=== PATIENT | male | born 1935 | race Caucasian/White ===

== ENCOUNTER 2018-10-20 09:57 | Emergency (ER) | payer MEDICARE, BC ==
--- NOTE | 2018-10-20 10:25 | Emergency Department Record ---
History of Present Illness - General Chief Complaint: Chest Pain Stated Complaint: CHEST PAIN Time Seen by Provider: 10/20/18 10:08 Source: Patient, Family Mode of Arrival: Ambulatory Limitations: No limitations - History of Present Illness Initial Comments: The patient is here due to L sided CP over the last hour. The patient states the pain was an aching pain that waxed and waned and was associated with lightheadedness. He denied any SOB, TONY, or sweating with it. The patient presently is gone. The patient did take 3 full dose ASA's after the onset of the pain. Additionally he had mild pain last evening with it. The onset this AM was at [facility]. Complaint: Chest pain Onset/Timin -: Hour(s) Pain Location: Left chest Pain Radiation: None Treatments Prior to Arrival: Aspirin - Related Data Home Medications Medication Instructions Recorded Confirmed Last Taken Tamsulosin HCl [Flomax] 0.4 mg PO DAILY 10/20/18 10/20/18 10/20/18 Allergies Allergy/AdvReac Type Severity Reaction Status Date / Time No Known Allergies Allergy none Verified 10/20/18 10:13 Travel Screening - Travel/Exposure Within Last 30 Days Have you traveled within the last 30 days?: No - Travel/Exposure Within Last Year Have you traveled outside the [place] in the last year?: No - Additonal Travel Details Have you been exposed to anyone with a communicable illness?: No - Travel Symptoms Symptom Screening: None Review of Systems Constitutional: Denies: Chills, Fever Eyes: Denies: Eye discharge ENT: Denies: Congestion Respiratory: Denies: Cough, Dyspnea Cardiovascular: Reports: Chest pain. Denies: Arrhythmia Endocrine: Denies: Fatigue Gastrointestinal: Denies: Nausea Genitourinary: Denies: Dysuria Musculoskeletal: Denies: Arthralgia Skin: Denies: Bruising Past Medical History - SOCIAL HISTORY Smoking Status: Never smoker Alcohol Use: None Drug Use: None - RESPIRATORY Hx Respiratory Disorders: No - CARDIOVASCULAR Hx Cardio Disorders: No Comment:: murmur - NEURO Hx Neuro Disorders: No - GI Hx GI Disorders: No Hx Hiatal Hernia: Yes - Hx Genitourinary Disorders: Yes Hx Prostate Problems: Yes - ENDOCRINE Hx Endocrine Disorders: No - MUSCULOSKELETAL Hx Musculoskeletal Disorders: No - PSYCH Hx Psych Problems: No - HEMATOLOGY/ONCOLOGY Hx Hematology/Oncology Disorders: Yes Hx Cancer: Yes (prostate) Family Medical History Any Significant Family History?: No Physical Exam - General General Appearance: Alert, Oriented x3, Cooperative, No acute distress - Head Head exam: Atraumatic, Normocephalic, Normal inspection - Eye Eye exam: Normal appearance, PERRL, EOMI - ENT Throat exam: Normal inspection. negative: Tonsillar erythema, Tonsillar exudate - Neck Neck exam: Normal inspection, Full ROM. negative: Tenderness - Respiratory Respiratory exam: Normal lung sounds bilaterally. negative: Respiratory distress - Cardiovascular Cardiovascular Exam: Regular rate, Normal rhythm, Systolic murmur - GI/Abdominal GI/Abdominal exam: Soft, Normal bowel sounds. negative: Tenderness - Extremities Extremities exam: Normal inspection, Full ROM, Normal capillary refill. negative: Tenderness - Back Back exam: Reports: Normal inspection - Neurological Neurological exam: Alert, Normal gait. negative: Abnormal gait, Motor sensory deficit - Psychiatric Psychiatric exam: negative: Anxious Course Vital Signs 10/20/18 09:58 Temperature 97.8 F Pulse Rate 92 H Respiratory 16 Rate Blood Pressure 148/92 Pulse Ox 98 - Reevaluation(s) Reevaluation #1: The patient has had some intermittent chest pains off and on since he has been here. Presently he is pain free. 2nd EKG: NSR at 86, neg ST-T changes. 10/20/18 11:26 Reevaluation #2: I did discuss the need for further monitoring and testing but due to being the weekend here we have no capability for that. The patient states he would like to see the [facility] group so we will initiate transfer to [facility]. 10/20/18 11:27 Reevaluation #3: I did discuss the case with Dr. Urbano at [facility] and she does accept the patient in transfer. 10/20/18 11:41 Medical Decision Making - Data Complexity MDM Data: Labs Ordered and/or Reviewed, X-Ray Ordered and/or Reviewed, EKG Ordered and/or Reviewed - Lab Data Result diagrams: 10/20/18 10:02 10/20/18 10:02 - EKG Data -: EKG Interpreted by Me EKG: No Acute Changes, Normal EKG - Radiology Data Radiology results: Report reviewed (CXR: neg for acute changes.) Disposition Disposition: Transfer Clinical Impression: Chest pain at rest Disposition: Acute Care Hospital Transfer Transfer To: [facility] Reason For Transfer: Cardiology Accepting Physician: Sundeep. Time Discussed w/Accepting Physician: 11:42 Condition: (2) Stable Forms: Patient Portal Access Time of Disposition: 11:42 Quality - Quality Measures Quality Measures: N/A - Blood Pressure Screening View Details: Yes Does Patient Have Any of the Following: No Blood Pressure Classification: Hypertensive Reading Systolic Measurement: 148 Diastolic Measurement: 92 Screening for High Blood Pressure: < First Hypertensive BP, F/U Documented > [ [id number]] First Hypertensive Follow-up Interventions: Referral to alternative/primary care provider.
[2018-10-20 10:40] LABS: BASO % 0.5 % (0-6); EOS % 1.9 % (0-6); GRAN % 64.5 % (47-80); HEMATOCRIT 45.8 % (42.0-52.0); HEMOGLOBIN 14.6 gm/dl (14.0-18.0); LYMPH % 24.9 % (16-45); MEAN CORPUSCULAR HEMOGLOBIN 30.9 pg (27-33); MEAN CORPUSCULAR HGB CONC 31.9 g/dl (32-36); MEAN PLATELET VOLUME 9.3 fl (7.4-10.4); MONO % 8.2 % (0-9); PLATELET COUNT 177 K/uL (130-400); RED BLOOD COUNT 4.72 M/uL (4.40-5.70); RED CELL DISTRIBUTION WIDTH 13.6 % (11.5-14.5); WHITE BLOOD COUNT W/O DIFF 4.3 K/uL (4.2-12.2)
[2018-10-20 10:51] LABS: PARTIAL THROMBOPLASTIN TIME 26.5 SECONDS (24.5-39.1); PROTHROMBIN TIME (PATIENT) 10.1 SECONDS (9.5-12.1)
[2018-10-20 10:53] LABS: BLOOD UREA NITROGEN 25 mg/dL (8-23); CREATININE 1.1 mg/dL (0.7-1.2); EST GLOMERULAR FILTRATION RATE > 60 mL/min
[2018-10-20 10:54] LABS: TOTAL PROTEIN 7.4 g/dL (6.6-8.7)
[2018-10-20 10:56] LABS: GLUCOSE,RANDOM 102 mg/dL (74-109)
[2018-10-20 10:59] LABS: ALB/GLOB RATIO 1.5 (1.1-1.8); ALBUMIN 4.4 g/dL (4.0-5.0); ALKALINE PHOSPHATASE 66 U/L (40-129); ALT/SGPT 16 U/L (<41); AST/SGOT 21 U/L (10.0-50.0)
--- NOTE | 2018-10-23 09:05 | RADIOLOGY REPORT ---
EXAM: CHEST, TWO VIEWS HISTORY: LEFT SIDED CHEST PAIN TODAY. TECHNIQUE: PA and lateral upright views of the chest were obtained. Comparison: 06/14/18. FINDINGS: The heart is normal in size. There is calcification and mild tortuosity of the aorta. The lungs are hyperinflated consistent with COPD. There are no acute infiltrates or effusions. There is no pneumothorax. There are no acute osseous abnormalities. IMPRESSION: 1. STABLE COPD. 2. NO ACUTE CHEST PATHOLOGY. JOB NUMBER: [id number] [facility]
== END 2018-10-20 12:49 | disposition short-term general hospital (02) ==
LOC: ER 09:57
DX: R07.89 Other chest pain (principal); R42 Dizziness and giddiness
CPT/HCPCS: 71046; 80053; 84484; 85025; 85610; 85730; 93005; 93010; 99284